=== PATIENT | female | born 1985 | race Caucasian/White ===

== ENCOUNTER 2016-12-06 16:09 | Emergency (ER) | payer BC ==
[~2016-12-06] VITALS: Ht 167.6 cm; Wt 107.0 kg
[~2016-12-06 16:09] MED LIST: AMBIEN10 MG PO; AMOXICILLIN500 MG PO; BACTRIM DS1 TAB PO; BENZONATATE200 MG PO; CEPH500C57 OR; CIPRO500 MG OR; CIPRO500 MG PO; CIPROFLOXACN500 MG PO; DEPO-MEDROL80 MG/ML IM; DIFLUCAN150 MG PO; FLEXERIL OR; FLONASE NASAL50 MCG; LAMICTAL200 M1 PO; LORTAB 10-325 M1 TAB PO; LORTAB 5 OR; LORTAB5 PO; MACROBID100 MG OR; METRONIDAZOL0.75 % VA; MOTRIN800 MG PO; MUCINEX600 MG PO; NAPROSYN500 MG OR; NO; NO HOME MEDS; PERCOCET 5/325M1 TAB OR; PHENERGAN; PREDNISONE10 MG PO; PRENATA2 OR; PYRIDIUM200 MG OR; TENORMIN PO; TERBUTALINE OR; ULTRAM50 M1 PO; ULTRAM50 MG OR; ULTRAM50 MG PO; VISTARIL25 MG OR; WELLBUTRIN150 M2 PO; XANAX0.25 MG PO
[2016-12-06 17:14] LABS: HEMATOCRIT 39.3 % (37.0-47.0); HEMOGLOBIN 12.1 g/dl (12.0-16.0); IMMATURE GRANULOCYTES 0.3 % (0.0-1.0); MEAN CELL VOLUME 83.1 fL CALC (80.0-100.0); MEAN CORPUSCULAR HGB 25.6 pG CALC (26.0-32.0); MEAN CORPUSCULAR HGB CONC 30.8 g/L CALC (32.0-36.0); NEUT# 6.42 thou/uL (2.00-7.15); RED BLOOD COUNT 4.73 mill/uL (4.20-5.60); RED CELL DISTRI WIDTH 14.6 % (11.5-15.5)
[2016-12-06 18:14] LABS: ALBUMIN 4.4 g/dL (3.2-5.0); ALKALINE PHOSPHATASE 82 u/l (38-126); ANION GAP 16 (6-22 (CALC)); BILIRUBIN, TOTAL 0.2 mg/dL (0.0-1.4); BUN 15 mg/dL (7-17); BUN/CREATININE RATIO 19 (12-20 (CALC)); CALCIUM 9.3 mg/dL (8.4-10.2); CARBON DIOXIDE 26 mmol/l (22-30); CHLORIDE 106 mmol/l (95-108); CREATININE 0.8 mg/dL (0.5-1.0); GFR > 60 ML/MIN (>=60 (CALC)); GFR FOR AFR.AMER. > 60 ML/MIN (>=60 (CALC)); GLUCOSE 93 mg/dL (65-105); POTASSIUM 4.5 mmol/l (3.5-5.1); SGOT/AST 25 u/l (14-36); SGPT/ALT 46 u/l (9-52); SODIUM 143 mmol/l (137-146); TOTAL PROTEIN 7.8 g/dL (6.3-8.2)
[2016-12-06 18:25] LABS: MYOGLOBIN 21 ng/mL (0 - 62)
[2016-12-06] MEDS ORDERED: TRAMADOL HYDROC50 MG PO (18:41)
[2016-12-06] MEDS ORDERED: FLEXERIL PO (18:41)
[2016-12-06] MEDS ORDERED: MOTRIN800 MG PO (18:41)
[2016-12-06 18:42] LABS: URINE BILIRUBIN - DIPSTICK NEGATIVE (NEGATIVE); URINE BLOOD DIPSTICK TRACE-INTACT (NEGATIVE); URINE COLOR YELLOW; URINE GLUCOSE - DIPSTICK NEGATIVE (NEGATIVE); URINE KETONE NEGATIVE (NEGATIVE); URINE LEUK ESTERASE NEGATIVE (NEGATIVE); URINE PROTEIN - DIPSTICK NEGATIVE (NEG-TRACE); URINE SPECIFIC GRAVITY 1.025; URINE UROBILINOGEN - DIPSTICK 0.2 E.U./dL (0.2)
[2016-12-06 18:44] VITALS: BP 145/66
[2016-12-06 18:47] LABS: URINE CLARITY CLOUDY; URINE NITRITE - DIPSTICK POSITIVE (Negative)
[2016-12-06 18:49] LABS: BARBITURATES NEGATIVE (NEGATIVE); COCAINE NEGATIVE (NEGATIVE); METHADONE NEGATIVE (NEGATIVE); TETRAHYDROCANNABIONOL NEGATIVE (NEGATIVE); TRICYLIC ANTIDEPRESSANTS NEGATIVE (NEGATIVE); URINE BACTERIA MANY hpf; URINE SQUAMOUS EPITHELIAL CELL FEW EPI/hpf (0-FEW)
[2016-12-06 18:50] LABS: OXCYCODONE NEGATIVE (NEGATIVE)
--- NOTE | 2016-12-09 11:25 | NUR ---
Spoke with pt over the phone and discussed C&S results with her. Pt confirms that she received a prescription called in to [facility] on 12/08/2016. Pt reports no fever or chills just the pain from the ER visit. Pt is to take ciprofloxacin 250 mg PO BID x 5 days. Pt encouraged to contact PCP to update on her condition and to visit [facility] ED if symptoms persist or worsen.
== END 2016-12-06 18:59 | disposition home or self-care (01) | DRG 552 ==
LOC: ED 16:09
PROVIDERS: Emergency Medicine
DX: M54.2 Cervicalgia (principal); I10 Essential (primary) hypertension; M79.602 Pain in left arm; R20.2 Paresthesia of skin; F41.9 Anxiety disorder, unspecified

== ENCOUNTER 2019-09-30 11:31 | Emergency (ER) | payer OTHER ==
[~2019-09-30 11:31] MED LIST changes: +FLEXERIL PO; +TRAMADOL HYDROC50 MG PO
[2019-09-30] MEDS ORDERED: ZESTRIL5 M1 PO (11:47)
[2019-09-30] MEDS ORDERED: TRAMADOL HCL50 MG PO (12:52)
[2019-09-30] MEDS ORDERED: VOLTAREN - GENE75 MG PO (12:52)
[2019-09-30 13:13] VITALS: BP 105/54
== END 2019-09-30 13:13 | disposition home or self-care (01) ==
LOC: ED 11:31
DX: S83.91XA Sprain of unspecified site of right knee, initial encounter (principal); S80.01XA Contusion of right knee, initial encounter; I10 Essential (primary) hypertension; W01.0XXA Fall on same level from slipping, tripping and stumbling without subsequent striking against object, initial encounter; Y92.009 Unspecified place in unspecified non-institutional (private) residence as the place of occurrence of the external cause

== ENCOUNTER 2020-06-08 17:13 | Emergency (ER) | payer OTHER ==
[~2020-06-08] VITALS: Ht 165.1 cm; Wt 101.0 kg
[~2020-06-08 17:13] MED LIST changes: +TRAMADOL HCL50 MG PO; +VOLTAREN - GENE75 MG PO; +ZESTRIL5 M1 PO
[2020-06-08] MEDS ORDERED: METOPROL TAR25 MG PO (18:04)
[2020-06-08 18:24] LABS: HEMATOCRIT 39.2 % (37.0-47.0); HEMOGLOBIN 12.3 g/dl (12.0-16.0); IMMATURE GRANULOCYTES 0.3 % (0.0-5.0); MEAN CELL VOLUME 82.7 fL CALC (80.0-100.0); MEAN CORPUSCULAR HGB 25.9 pG CALC (26.0-32.0); MEAN CORPUSCULAR HGB CONC 31.4 g/dL CAL (32.0-36.0); NEUT# 5.98 thou/uL (2.00-7.15); RED BLOOD COUNT 4.74 mill/uL (4.20-5.60); RED CELL DISTRI WIDTH 13.8 % (11.5-15.5)
[2020-06-08 18:48] LABS: ALBUMIN 4.3 g/dL (3.2-5.0); ALKALINE PHOSPHATASE 113 u/l (38-126); ANION GAP 14 (6-22 (CALC)); BUN 13 mg/dL (7-17); BUN/CREATININE RATIO 19 (12-20 (CALC)); CARBON DIOXIDE 24 mmol/l (22-30); CHLORIDE 102 mmol/l (95-108); CREATININE 0.7 mg/dL (0.5-1.0); GFR > 60 ML/MIN (>=60 (CALC)); GFR FOR AFR.AMER. > 60 ML/MIN (>=60 (CALC)); POTASSIUM 3.8 mmol/l (3.5-5.1); SGOT/AST 34 u/l (14-36); SODIUM 136 mmol/l (137-146); TOTAL PROTEIN 7.9 g/dL (6.3-8.2)
[2020-06-08 18:49] LABS: BILIRUBIN, TOTAL 0.4 mg/dL (0.0-1.4)
[2020-06-08 18:59] LABS: MYOGLOBIN 29 ng/mL (0 - 62)
[2020-06-08 19:07] LABS: URINE BILIRUBIN - DIPSTICK NEGATIVE (NEGATIVE); URINE BLOOD DIPSTICK NEGATIVE (NEGATIVE); URINE COLOR YELLOW; URINE GLUCOSE - DIPSTICK NEGATIVE (NEGATIVE); URINE KETONE NEGATIVE (NEGATIVE); URINE LEUK ESTERASE NEGATIVE (NEGATIVE); URINE NITRITE - DIPSTICK NEGATIVE (Negative); URINE PROTEIN - DIPSTICK NEGATIVE (NEG-TRACE); URINE SPECIFIC GRAVITY >=1.030; URINE UROBILINOGEN - DIPSTICK 0.2 E.U./dL (0.2)
[2020-06-08] MEDS ORDERED: TOPROL XL50 MG PO (21:20)
[2020-06-08 21:33] VITALS: BP 160/90
== END 2020-06-08 21:34 | disposition home or self-care (01) ==
LOC: ED 17:13
PROVIDERS: Emergency Medicine
DX: I10 Essential (primary) hypertension (principal); F41.9 Anxiety disorder, unspecified; Z20.822 Contact with and (suspected) exposure to COVID-19

== ENCOUNTER 2021-03-29 21:23 | Emergency (ER) | payer OTHER ==
[~2021-03-29] VITALS: Ht 165.1 cm; Wt 114.0 kg
[~2021-03-29 21:23] MED LIST changes: +METOPROL TAR25 MG PO; +TOPROL XL50 MG PO
[2021-03-29 22:40] LABS: HEMATOCRIT 39.5 % (37.0-47.0); HEMOGLOBIN 11.7 g/dl (12.0-16.0); IMMATURE GRANULOCYTES 0.2 % (0.0-5.0); MEAN CORPUSCULAR HGB 26.4 pG CALC (26.0-32.0); MEAN CORPUSCULAR HGB CONC 29.6 g/dL CAL (32.0-36.0); NEUT# 7.12 thou/uL (2.00-7.15); RED BLOOD COUNT 4.44 mill/uL (4.20-5.60); RED CELL DISTRI WIDTH 13.8 % (11.5-15.5)
[2021-03-29 22:46] LABS: URINE BILIRUBIN - DIPSTICK NEGATIVE (NEGATIVE); URINE BLOOD DIPSTICK LARGE (NEGATIVE); URINE GLUCOSE - DIPSTICK NEGATIVE (NEGATIVE); URINE KETONE NEGATIVE (NEGATIVE); URINE LEUK ESTERASE NEGATIVE (NEGATIVE); URINE PROTEIN - DIPSTICK TRACE mg/dL (NEG-TRACE); URINE SPECIFIC GRAVITY >=1.030; URINE UROBILINOGEN - DIPSTICK 0.2 E.U./dL (0.2)
[2021-03-29 22:47] LABS: URINE NITRITE - DIPSTICK NEGATIVE (Negative)
[2021-03-29 22:48] LABS: URINE COLOR DK. YELLOW
[2021-03-29 22:51] LABS: ALBUMIN 4.3 g/dL (3.2-5.0); ALKALINE PHOSPHATASE 89 u/l (38-126); AMYLASE 70 u/l (30-110); ANION GAP 13 (6-22 (CALC)); BILIRUBIN, TOTAL 0.4 mg/dL (0.0-1.4); BUN 18 mg/dL (7-17); BUN/CREATININE RATIO 24 (12-20 (CALC)); CARBON DIOXIDE 28 mmol/l (22-30); CHLORIDE 105 mmol/l (95-108); CPK 23 u/l (30-165); CREATININE 0.8 mg/dL (0.5-1.0); GFR > 60 ML/MIN (>=60 (CALC)); GFR FOR AFR.AMER. > 60 ML/MIN (>=60 (CALC)); LIPASE 93 u/l (23-300); POTASSIUM 3.9 mmol/l (3.5-5.1); SGOT/AST 21 u/l (14-36); SODIUM 141 mmol/l (137-146); TOTAL PROTEIN 8.2 g/dL (6.3-8.2)
[2021-03-29 22:54] LABS: URINE SQUAMOUS EPITHELIAL CELL FEW EPI/hpf (0-FEW)
[2021-03-29 22:56] LABS: ACT PARTIAL THROMBO TIME 24.7 SECONDS (20.0-32.5)
[2021-03-29] MEDS ORDERED: PROTONIX40 M2 PO (23:42)
[2021-03-29 23:47] VITALS: BP 175/68
== END 2021-03-29 23:58 | disposition home or self-care (01) ==
LOC: ED 21:23
PROVIDERS: Family Medicine
DX: K29.70 Gastritis, unspecified, without bleeding (principal); I10 Essential (primary) hypertension; F41.9 Anxiety disorder, unspecified; F17.200 Nicotine dependence, unspecified, uncomplicated
CPT/HCPCS: Q9967

== ENCOUNTER 2023-01-07 07:24 | Emergency (ER) | payer SELFPAY ==
[~2023-01-07] VITALS: Ht 165.1 cm; Wt 100.0 kg
[~2023-01-07 07:24] MED LIST changes: +PROTONIX40 M2 PO
[2023-01-07] MEDS ORDERED: CLINDAMYCIN300 M1 PO (07:44)
[2023-01-07] MEDS ORDERED: TRAMADOL HCL50 MG PO (07:44)
[2023-01-07] MEDS ORDERED: NAPROXEN375 MG PO (07:44)
[2023-01-07 08:05] VITALS: BP 156/94
== END 2023-01-07 08:09 | disposition home or self-care (01) | DRG 159 ==
LOC: ED 07:24
DX: K04.7 Periapical abscess without sinus (principal); K02.9 Dental caries, unspecified; I10 Essential (primary) hypertension; F41.9 Anxiety disorder, unspecified; F17.200 Nicotine dependence, unspecified, uncomplicated

== ENCOUNTER 2024-06-29 02:08 | Emergency (ER) | payer OTHER ==
[~2024-06-29] VITALS: Ht 165.1 cm; Wt 87.0 kg
[~2024-06-29 02:08] MED LIST changes: +AMLODIPINE BESYL5 MG PO; +CLINDAMYCIN300 M1 PO; +DOXY-CAPS100 MG PO; +EC-NAPROXEN500 MG PO; +FIORICET 50-3001 CAP PO; +INDERAL 40MG TA40 MG PO; +LEXAPRO10 MG PO; +NAPROXEN375 MG PO; +PROMETHAZINE HY25 M1 PO; +ZOFRAN4 MG/TAB PO
[2024-06-29] MEDS ORDERED: ACETAMINOPHEN 500 MG TAB PO ONE (02:20)
[2024-06-29] MEDS ORDERED: NAPROXEN 250 MG/TAB PO ONE (02:20)
[2024-06-29] MEDS ORDERED: CLINDAMYCIN HCL 150 MG CAP PO ONE (02:20)
[2024-06-29 02:41] VITALS: BP 161/87
== END 2024-06-29 02:42 | disposition home or self-care (01) | DRG 159 ==
LOC: ED 02:08
DX: K04.7 Periapical abscess without sinus (principal); K02.9 Dental caries, unspecified; F17.200 Nicotine dependence, unspecified, uncomplicated